=== PATIENT | male | born 1945 | race Caucasian/White ===

== ENCOUNTER 2024-08-07 11:03 | Emergency (ER) | payer OTHER, SELFPAY ==
[2024-08-07 11:17] VITALS: BP 132/72
[2024-08-07 12:37] LABS: Urine Albumin 1+ (Neg - Trace); Urine Bilirubin Negative (Negative); Urine Character Clear (Clear); Urine Color Yellow; Urine Glucose Negative (Negative); Urine Ketone Negative (Negative); Urine Leukocyte Negative (Negative); Urine Nitrite Negative (Negative); Urine Occult Blood Negative (Negative); Urine Specific Gravity 1.025 (<1.030); Urine Urobilinogen Negative (Neg - 1+)
[2024-08-07 12:55] LABS: Urine Bacteria Few (Negative); Urine Red Blood Cell 0-2 /HPF (0-2); Urine Squamous Cell 16-20 /LPF (Few); Urine White Cell 0-2 /HPF (0-5)
[2024-08-07 13:53] VITALS: BP 130/65
--- NOTE | 2024-08-07 15:43 | ED.GENMED ---
History of Present Illness
General
Chief Complaint: Change in Mental Status
Source: patient and family (Daughter)
Exam Limitations: none
Time Seen by Provider: 08/07/24 15:06
Nursing documentation reviewed up to this point in time: agreed with
History of Present Illness
History of Present Illness:
Patient brought to ED by daughter for head CT. She states that he has been making bad decisions over the past year. He has lost money to multiple online scams and now believes he is going to a 30yo woman that he met online. He had labs last
week with PCP, all normal. Advised to have head CT. He admits to bad decisions in his past but feels that his his business only. In private he told me that his daughter has been ''sucking me dry' for the past 40 some years and that is why she is
concerned that he has been losing money.
Past History
Past History
ED Past Medical History: Other (Benign essential tremors, GERD, anxiety)
ED Past Surgical History: Orthopedic
Social History
Tobacco: Non-smoker
Alcohol: Occasional
Personal:
Living: other (States he has been living with the same woman for the past 20 years but now she wants to live alone.)
Family History
Family History: Other (Mother with skin cancer, father with ALS)
Review of Systems
Review of Systems
Allergies reviewed?: Yes
All Other Systems: ROS reviewed and negative except as documented in HPI and ROS
Constitutional: Reports no symptoms
EENT: Reports no symptoms
Respiratory: Reports no symptoms
Cardiac: Reports no symptoms
ABD/GI: Reports no symptoms
: Reports no symptoms
Musculoskeletal: Reports no symptoms
Skin: Reports no symptoms
Neurological: Reports no symptoms
Psychiatric: Reports no symptoms
Phy Exam
General Physical Exam
General Presentation: well appearing and no apparent distress
General age: appears stated age
General Skin: warm and dry
General Habitus: normal
Cardiovascular Exam
Cardiovascular Exam: regular rate/rhythm
Neurological Exam
Neurological Exam: alert, oriented x3, no motor deficits, speech normal and normal gait
Musculoskeletal Exam
Musculoskeletal Exam: full ROM and no edema
Skin Exam
Skin Exam: normal color and warm/dry
Psychiatric Exam
Psychiatric Exam: normal mood/affect
Course
Orders/Labs/Results
Orders:
Orders
08/07/24 12:18
Urinalysis Reflex To Culture Urgent
Date Specimen was Collected: 08/07/24
Time Specimen was Collected: 11:25
Urine Microscopic Reflex Cult Urgent
08/07/24 12:53
CT Head W/o Iv Contrast Urgent
Comment:
Reason For Exam: dating a younger women
Abnormal Lab Results
08/07/24
12:18
Urine Bacteria (Reflex) Few A
(Negative)
Urine Albumin (Reflex) 1+ A
(Neg - Trace)
Vital Signs
Initial and Last Documented VS:
Initial Vital Signs
Pulse Resp BP Pulse Ox
82 18 132/72 97
08/07/24 11:17 08/07/24 11:17 08/07/24 11:17 08/07/24 11:17
Last Documented Vital Signs
Temp Pulse Resp BP Pulse Ox
97.9 F 74 16 130/65 98
08/07/24 13:53 08/07/24 13:53 08/07/24 13:53 08/07/24 13:53 08/07/24 13:53
*Radiology
Radiology exam reviewed: radiology read reviewed
*Pulse Oximetry
Patient hypoxic: no
*Critical Care Note
Total Time (30-74mins, 75-104mins- exclusive of procedures): Not Applicable
Update Note
Update Note:
Patient sent to ED for head CT due to him making poor decisions over the past year. Head CT, UA normal. Labs completed last week by Dr. Kline were normal as per pt and daughter. He offers no complaints. He admits to making poor choices in
the past but states that these are his choices to make. He is alert and oriented x 3. I spoke with crisis about his situation. As per crisis there is no further intervention from crisis as he is oriented and able to make his own decisions. Case
discussed with Dr. Briones who agrees with crisis. Dr. Kline notified via tiger text of assessment today. Will discharge home. Patient encouraged to follow up with PCP next week.
ED Attending Note
-
Portions of this chart may have been created with voice recognition software.� Occasional wrong word or��sound alike� substitutions may have occurred due to the inherent limitations of voice recognition software.
Discharge Plan
Departure
Patient Disposition: Home (Routine Discharge)
Date of Disposition: 08/07/24
Time of Disposition: 15:41
Patient with high blood pressure during this ER visit?: No
Condition: Good
Covid-19: Not Applicable
Discharge Problem:
Encounter for medical assessment
Instructions: General
Prescriptions:
No Action
hydrocodone-acetaminophen [Vicodin] 1 EACH tablet
1 tab PO Q6HPRN PRN (Reason: severe pain) Qty: 8 0RF
meclizine 25 MG tablet
25 mg PO Q8HPRN PRN (Reason: nausea or vertigo) Qty: 21 0RF
Referrals:
Everardo Kline I., DO [Family Provider] - Follow up in 2-3 days
Interventions
Interventions:
*Risk Screen - Suicide Last Done: 08/07/24 11:17
*General Assessment Last Done: 08/07/24 11:17
*Neglect/Abuse Screening Last Done: 08/07/24 11:17
Discharge Date and Time
Print Language: MAURITANIAN
== END 2024-08-07 16:15 | disposition home or self-care (01) ==
LOC: EMR 11:03
PROVIDERS: Emergency Medicine; EMERGENCY PHYSICIAN Emergency Medicine; FAMILY PHYSICIAN Internal Medicine
DX: R41.82 Altered mental status, unspecified (principal); G25.0 Essential tremor; K21.9 Gastro-esophageal reflux disease without esophagitis
CPT/HCPCS: 99284; 70450; 81003; 81015